=== PATIENT | female | born 2000 | race Caucasian/White ===

== ENCOUNTER 2022-01-20 11:59 | Emergency (ER) | payer BC, OTHER, MEDICAID, SELFPAY ==
[2022-01-20 12:10] VITALS: BP 121/76; PULSE 71; RESP 14; TEMP 36.7; O2SAT 99
--- NOTE | 2022-01-20 12:14 | DI.US.S_ITS ---
PROCEDURE: US PELVIC COMPLETE INDICATIONS: BLEEDING; 6 WEEKS TECHNIQUE: Real-time scanning was performed of the pelvic organs, with image documentation. Additional endovaginal scanning was necessary due to incomplete visualization of the adnexal and endometrial structures by transabdominal scanning. COMPARISON: None. FINDINGS: Uterus: Uterus is anteverted and normal in size at 8.4 x 4.0 x 5.3 cm. The myometrium is homogeneous. The endometrium measures 19.3 mm combined thickness and has heterogeneous echotexture. No intrauterine identified. Ovaries: The right ovary measures 2.7 x 2.1 x 2.2 cm. The left ovary measures 3.8 x 1.7 x 1.5 cm. The ovaries have a normal sonographic appearance. Ovaries are sonographically normal. No adnexal masses are seen. Other: No pathologic free abdominal or pelvic fluid. IMPRESSION: Thickened, heterogeneous endometrium with no definite intrauterine identified. Differential diagnosis includes early occult intrauterine , retained products of conception and occult ectopic . Recommend close clinical observation, correlation with serial beta HCG and short-term follow-up ultrasound in 1 week or earlier if clinically indicated. Dictated by: Denise Armstrong MD, PhD on 01/20/2022 at 13:29 Approved by: Denise Armstrong MD, PhD on 01/20/2022 at 13:34
[2022-01-20 12:53] LABS: Appearance Urine UA CLOUDY; Bilirubin Urine UA NEGATIVE (NEGATIVE); Color Urine UA RED; Glucose Urine UA NEGATIVE (Negative); Ketones Urine UA NEGATIVE (NEGATIVE); Leukocyte Esterase Urine UA TRACE (NEGATIVE); Nitrite Urine UA NEGATIVE (Negative); Occult Blood Urine UA 3+ (Negative); Protein Urine UA 2+ (Negative); Specific Gravity Urine UA 1.015 (1.000-1.035); Urobilinogen Urine UA 0.2 E.U./dL (0.2)
[2022-01-20 12:54] LABS: pH Urine UA 8.5 (4.5-8.0)
[2022-01-20 13:01] LABS: Bacteria Urine Few (2-10); Culture Indicated Urine Specimen Cultured; RBC Urine 30-100/HPF (0-5/HPF); WBC Urine 5-10/HPF (0-5/HPF)
[2022-01-20 13:04] LABS: Add Manual Diff / Slide Review NO; Basophils Absolute Auto 0 /uL (0-100); Basophils Percent Auto 0.4 % (0-2); Eosinophils Absolute Auto 100 /uL (0-450); Eosinophils Percent Auto 1.5 % (2-4); Hemoglobin 13.5 g/dL (12.0-16.0); INR 1.1 (0.9-1.3); Lymphocytes Absolute Auto 2000 /uL (1100-4500); Lymphocytes Percent Auto 23.5 % (25-40); Mean Corpuscular HGB Conc 33.6 % (30-36); Mean Corpuscular Hemoglobin 29.4 PG (26-34); Mean Corpuscular Volume 87.3 fL (80-100); Monocytes Absolute Auto 600 /uL (0-900); Monocytes Percent Auto 6.9 % (3-14); Neutrophils Absolute Auto 5800 /uL (1500-7000); Neutrophils Percent Auto 67.7 % (50-75); Platelet Count 295 X10^3/uL (150-400); Prothrombin Time 12.2 SECONDS (10.1-12.7); Red Blood Cell Count 4.58 X10^6/uL (4.0-5.2); Red Cell Distribution Width 12.5 % (11.6-14.8); White Blood Cell Count 8.6 X10^3/uL (4.5-11.0)
[2022-01-20 13:07] LABS: PTT Partial Thromboplastin Tim 32 SECONDS (26.4-36.2)
--- NOTE | 2022-01-20 13:30 | ED.PREGNANCY ---
HPI - <Allison Hernandez PA-C - Last Filed: 01/20/22 14:26> General Chief complaint: Vaginal Bleeding Stated complaint: 6 Wks Preg, Thinks Miscarrige Time Seen by Provider: 01/20/22 12:21 Source: patient Mode of arrival: Ambulatory Limitations: no limitations History of Present Illness HPI Narrative: 21-year-old female with no reported past medical history presents to the ED with 3 days vaginal bleeding, clots, pelvic cramping. Patient endorses that she was seen at [facility] last week, had an ultrasound which showed an IUP of 6 weeks gestation. Patient states she started having vaginal bleeding the day after that exam along with clots, pelvic cramping. Patient denies fever, chills, chest pain, shortness of breath, dysuria, flank pain, lightheadedness, dizziness, syncope. Patient endorses this as her 1st . Related Data Previous Rx's Medication Instructions Recorded nitrofurantoin 100 mg PO BID 5 Days #10 cap 01/20/22 monohydrate/macrocrystals 100 mg capsule (Macrobid) nitrofurantoin 100 mg PO BID 5 Days #10 cap 01/20/22 monohydrate/macrocrystals 100 mg capsule (Macrobid) Allergies Allergy/AdvReac Type Severity Reaction Status Date / Time acetaminophen Allergy Severe Anaphylaxis Verified 01/20/22 12:19 Review of Systems <Allison Hernandez PA-C - Last Filed: 01/20/22 14:26> Review of Systems ROS Unobtainable: All systems reviewed & are unremarkable except as noted in HPI and below Constitutional Constitutional: Denies chills, Denies fatigue, Denies fever(s), Denies frequent falls, Denies lethargy and Denies weakness Eyes Eyes: Denies change in vision, Denies eye discharge, Denies irritation and Denies loss of vision ENT Ears, Nose, Mouth, and Throat: Denies change in voice, Denies dizziness, Denies neck pain, Denies sore throat and Denies throat swelling Cardiovascular Cardiovascular: Denies chest pain, Denies irregular heart rhythm, Denies lightheadedness, Denies palpitations, Denies dyspnea, Denies dyspnea on exertion and Denies orthopnea Respiratory Respiratory: Denies cough, Denies dyspnea, Denies dyspnea on exertion and Denies wheezing Gastrointestinal Gastrointestinal: Denies abdominal pain, Denies change in bowel habits, Denies diarrhea, Denies nausea and Denies vomiting Genitourinary Genitourinary: Reports abnormal vaginal bleeding, Denies hematuria, Reports pelvic pain, Denies flank pain, Denies urinary incontinence and Denies urinary urgency Comments: Vaginal bleeding, clots, pelvic cramping Musculoskeletal Musculoskeletal: Denies back pain, Denies muscle weakness, Denies neck pain, Denies numbness and Denies tingling Integumentary/Breasts Skin/Breast: Denies pruritus, Denies erythema, Denies rash and Denies wounds Neurologic Neurologic: Denies behavioral changes, Denies confusion, Denies dizziness, Denies frequent falls, Denies loss of vision, Denies numbness, Denies tingling and Denies weakness Psychiatric Psychiatric: Denies anxiety, Denies behavioral changes, Denies confusion, Denies depression, Denies homicidal ideation and Denies suicidal ideation Endocrine Endocrine: Denies fatigue, Denies flushing and Denies palpitations Hematologic/Lymphatic Hematologic/Lymphatic: Denies easy bruising Allergic/Immunologic Allergic/Immunologic: Denies urticaria, Denies throat swelling and Denies wheezing PMFSH - <Allison Hernandez PA-C - Last Filed: 01/20/22 14:26> Past Medical History Medical history: Reports no medical history Exam <Allison Hernandez PA-C - Last Filed: 01/20/22 14:26> Initial Vital Signs Initial Vital Signs: Vital Signs Temperature 98.1 F 01/20/22 12:10 Pulse Rate 71 01/20/22 12:10 Respiratory Rate 14 01/20/22 12:10 Blood Pressure 121/76 01/20/22 12:10 Pulse Oximetry 99 01/20/22 12:10 Const General: cooperative, healthy appearing and comfortable [facility] Head: normal to inspection Eyes General: appearance normal, both eyes and all related structures Neck Neck: normal visual inspection Chest Chest: normal inspection of the chest Resp Effort & Inspection: normal respiratory effort Auscultation: clear to auscultation bilaterally Cardio Rate: regular rate Rhythm: regular rhythm GI Inspection: normal to inspection Other: Abdomen is soft, nondistended, nontender to palpation. General: No CVA tenderness Skin General: no rashes or lesions noted Neuro General: patient alert, patient awake and patient oriented x3 Psych Appearance: grossly normal Mental Status: mental status grossly normal <Peyman Reynolds DO - Last Filed: 01/20/22 14:40> Initial Vital Signs Initial Vital Signs: Vital Signs Temperature 98.1 F 01/20/22 12:10 Pulse Rate 71 01/20/22 12:10 Respiratory Rate 14 01/20/22 12:10 Blood Pressure 121/76 01/20/22 12:10 Pulse Oximetry 99 01/20/22 12:10 Course <Allison Hernandez PA-C - Last Filed: 01/20/22 14:26> Orders Ordered: ED Orders 01/20/22 12:14 US pelvic complete Stat 01/20/22 12:28 ABO RH Type Stat Complete Blood Count AUTO DIFF Stat Comprehensive Metabolic Panel Stat HCG Quantitative /Beta subunit Stat PT [Prothrombin Time INR] Stat PTT [Partial Thromboplastin Time] Stat 01/20/22 12:45 Urinalysis and Microscopic Stat Urine Culture Stat Discontinued Medications Morphine Sulfate (Morphine 4 Mg/Ml Inj) 4 mg IV NOW ONE Stop: 01/20/22 13:31 Last Admin: 01/20/22 13:55 Dose: Not Given Documented by: TIFFANI Morphine Sulfate (Morphine 4 Mg/Ml Inj) 4 mg IM NOW ONE Stop: 01/20/22 13:55 Last Admin: 01/20/22 13:50 Dose: 4 mg Documented by: TIFFANI Vital Signs Vital signs: Vital Signs - 8 hr 01/20/22 12:10 01/20/22 14:04 Temperature 98.1 F Pulse Rate 71 78 Respiratory Rate 14 18 Blood Pressure 121/76 128/72 Pulse Oximetry 99 98 <DO Junie Joe Last Filed: 01/20/22 14:40> Orders Ordered: ED Orders 01/20/22 12:14 US pelvic complete Stat 01/20/22 12:28 ABO RH Type Stat Complete Blood Count AUTO DIFF Stat Comprehensive Metabolic Panel Stat HCG Quantitative /Beta subunit Stat PT [Prothrombin Time INR] Stat PTT [Partial Thromboplastin Time] Stat 01/20/22 12:45 Urinalysis and Microscopic Stat Urine Culture Stat Discontinued Medications Morphine Sulfate (Morphine 4 Mg/Ml Inj) 4 mg IV NOW ONE Stop: 01/20/22 13:31 Last Admin: 01/20/22 13:55 Dose: Not Given Documented by: TIFFANI Morphine Sulfate (Morphine 4 Mg/Ml Inj) 4 mg IM NOW ONE Stop: 01/20/22 13:55 Last Admin: 01/20/22 13:50 Dose: 4 mg Documented by: TIFFANI Vital Signs Vital signs: Vital Signs - 8 hr 01/20/22 12:10 01/20/22 14:04 Temperature 98.1 F Pulse Rate 71 78 Respiratory Rate 14 18 Blood Pressure 121/76 128/72 Pulse Oximetry 99 98 MDM - OB/Uterine Contractions <Allison Hernandez PA-C - Last Filed: 01/20/22 14:26> Medical Records Attestation: I reviewed the patient's medical records. Lab Data Attestation: I reviewed the patient's lab results. Lab results narrative: HCG 06/28/1994. UA positive for UTI. H&H within normal limits. Result diagrams: 01/20/22 12:28 01/20/22 12:28 Labs: Lab Results 01/20/22 01/20/22 01/20/22 Range/Units 12:28 12:28 12:28 WBC 8.6 (4.5-11.0) X10^3/uL RBC 4.58 (4.0-5.2) X10^6/uL Hgb 13.5 (12.0-16.0) g/dL Hct 40.0 (36-46) % MCV 87.3 (80-100) fL MCH 29.4 (26-34) PG MCHC 33.6 (30-36) % RDW 12.5 (11.6-14.8) % Plt Count 295 (150-400) X10^3/uL Neut % (Auto) 67.7 (50-75) % Lymph % (Auto) 23.5 L (25-40) % [place] % (Auto) 6.9 (3-14) % Eos % (Auto) 1.5 L (2-4) % Baso % (Auto) 0.4 (0-2) % Neut # (Auto) 5800 (9773-0952) /uL Lymph # (Auto) 2000 (9769-6410) /uL [place] # (Auto) 600 (0-900) /uL Eos # (Auto) 100 (0-450) /uL Baso # (Auto) 0 (0-100) /uL PT (10.1-12.7) SECONDS INR (0.9-1.3) APTT (26.4-36.2) SECONDS Sodium 137 (137-145) mmol/L Potassium 4.0 (3.4-5.1) mmol/L Chloride 104 (98-107) mmol/L Carbon Dioxide 27 (22-32) mmol/L BUN 6 L (7-17) mg/dL Creatinine 0.49 L (0.52-1.04) mg/dL Estimated GFR > 60.0 (>60) mL/min BUN/Creatinine Ratio 12.2 (6-22) Glucose 86 (70-100) mg/dL Calcium 9.6 (8.4-10.2) mg/dL Total Bilirubin 0.5 (0.2-1.3) mg/dL AST 28 (14-36) IU/L ALT 32 (<35) IU/L Alkaline Phosphatase 62 (38-126) U/L Total Protein 7.4 (6.3-8.2) g/dL Albumin 4.6 (3.5-5.0) g/dL Globulin 2.8 (1.7-4.1) g/dL Albumin/Globulin Ratio 1.6 (1.0-2.8) HCG, Quant 3794.9 mIU/mL Urine Color Urine Appearance Urine pH (4.5-8.0) Ur Specific [place] (1.000-1.035) Urine Protein (Negative) Urine Glucose (UA) (Negative) g/dL Urine Ketones (NEGATIVE) Urine Occult Blood (Negative) Urine Nitrate (Negative) Urine Bilirubin (NEGATIVE) Urine Urobilinogen (0.2) E.U./dL Ur Leukocyte Esterase (NEGATIVE) Urine RBC (0-5/HPF) Urine WBC (0-5/HPF) Urine Bacteria (None) Ur Culture Indicated? Blood Type B Positive 01/20/22 01/20/22 Range/Units 12:28 12:45 WBC (4.5-11.0) X10^3/uL RBC (4.0-5.2) X10^6/uL Hgb (12.0-16.0) g/dL Hct (36-46) % MCV (80-100) fL MCH (26-34) PG MCHC (30-36) % RDW (11.6-14.8) % Plt Count (150-400) X10^3/uL Neut % (Auto) (50-75) % Lymph % (Auto) (25-40) % [place] % (Auto) (3-14) % Eos % (Auto) (2-4) % Baso % (Auto) (0-2) % Neut # (Auto) (5250-6112) /uL Lymph # (Auto) (9333-8081) /uL [place] # (Auto) (0-900) /uL Eos # (Auto) (0-450) /uL Baso # (Auto) (0-100) /uL PT 12.2 (10.1-12.7) SECONDS INR 1.1 (0.9-1.3) APTT 32 (26.4-36.2) SECONDS Sodium (137-145) mmol/L Potassium (3.4-5.1) mmol/L Chloride (98-107) mmol/L Carbon Dioxide (22-32) mmol/L BUN (7-17) mg/dL Creatinine (0.52-1.04) mg/dL Estimated GFR (>60) mL/min BUN/Creatinine Ratio (6-22) Glucose (70-100) mg/dL Calcium (8.4-10.2) mg/dL Total Bilirubin (0.2-1.3) mg/dL AST (14-36) IU/L ALT (<35) IU/L Alkaline Phosphatase (38-126) U/L Total Protein (6.3-8.2) g/dL Albumin (3.5-5.0) g/dL Globulin (1.7-4.1) g/dL Albumin/Globulin Ratio (1.0-2.8) HCG, Quant mIU/mL Urine Color Red Urine Appearance Cloudy Urine pH 8.5 H (4.5-8.0) Ur Specific [place] 1.015 (1.000-1.035) Urine Protein 2+ H (Negative) Urine Glucose (UA) Negative (Negative) g/dL Urine Ketones Negative (NEGATIVE) Urine Occult Blood 3+ H (Negative) Urine Nitrate Negative (Negative) Urine Bilirubin Negative (NEGATIVE) Urine Urobilinogen 0.2 (0.2) E.U./dL Ur Leukocyte Esterase Trace H (NEGATIVE) Urine RBC 30-100/hpf H (0-5/HPF) Urine WBC 5-10/hpf H (0-5/HPF) Urine Bacteria Few (2-10) H (None) Ur Culture Indicated? Specimen cultured Blood Type Imaging Data US - OB: Radiologist's Impression: PROCEDURE:? US PELVIC COMPLETE ? INDICATIONS:? BLEEDING; 6 WEEKS ? TECHNIQUE:? Real-time scanning was performed of the pelvic organs, with image documentation.? Additional endovaginal scanning was necessary due to incomplete visualization of the adnexal and endometrial structures by transabdominal scanning.? ? COMPARISON:? None. ? FINDINGS:? ?? Uterus:? Uterus is anteverted and normal in size at 8.4 x 4.0 x 5.3 cm. The myometrium is homogeneous. ? The endometrium measures 19.3 mm combined thickness and has heterogeneous echotexture.? No intrauterine identified. ? Ovaries:? The right ovary measures 2.7 x 2.1 x 2.2 cm. The left ovary measures 3.8 x 1.7 x 1.5 cm. The ovaries have a normal sonographic appearance.? Ovaries are sonographically normal.? No adnexal masses are seen. ? Other:? No pathologic free abdominal or pelvic fluid. ? ? IMPRESSION:? Thickened, heterogeneous endometrium with no definite intrauterine identified.? Differential diagnosis includes early occult intrauterine , retained products of conception and occult ectopic .? Recommend close clinical observation, correlation with serial beta HCG and short-term follow-up ultrasound in 1 week or earlier if clinically indicated. ? ? ? Dictated by: Denise Armstrong MD, PhD on 01/20/2022 at 13:29 ? ? Approved by: Denise Armstrong MD, PhD on 01/20/2022 at 13:34 ? MDM Narrative Medical decision making narrative: 21-year-old female with no reported past medical history presents to the ED with 3 days vaginal bleeding, clots, pelvic cramping. Concern for miscarriage versus ectopic versus IUP. Will order labs, quantitative HCG, pelvic ultrasound. Will reassess. Will treat pain with morphine. Ultrasound with no evidence of IUP, ectopic. Babatunde ECG 06/28/1994. UA positive for UTI. In symptoms likely due to a miscarriage. Will discharge home with prescription for the UTI, follow-up with Dr. Laguna for 9:45 a.m. tomorrow. ED return precautions discussed with patient. Patient verbalized understanding. Called patient to inform of the UTI, called in prescription for Macrobid to [facility] in a [place]. Patient verbalized understanding. <Peyman Reynolds, DO - Last Filed: 01/20/22 14:40> Lab Data Labs: Lab Results 01/20/22 01/20/22 01/20/22 Range/Units 12:28 12:28 12:28 WBC 8.6 (4.5-11.0) X10^3/uL RBC 4.58 (4.0-5.2) X10^6/uL Hgb 13.5 (12.0-16.0) g/dL Hct 40.0 (36-46) % MCV 87.3 (80-100) fL MCH 29.4 (26-34) PG MCHC 33.6 (30-36) % RDW 12.5 (11.6-14.8) % Plt Count 295 (150-400) X10^3/uL Neut % (Auto) 67.7 (50-75) % Lymph % (Auto) 23.5 L (25-40) % [place] % (Auto) 6.9 (3-14) % Eos % (Auto) 1.5 L (2-4) % Baso % (Auto) 0.4 (0-2) % Neut # (Auto) 5800 (9277-6614) /uL Lymph # (Auto) 2000 (7885-5153) /uL [place] # (Auto) 600 (0-900) /uL Eos # (Auto) 100 (0-450) /uL Baso # (Auto) 0 (0-100) /uL PT (10.1-12.7) SECONDS INR (0.9-1.3) APTT (26.4-36.2) SECONDS Sodium 137 (137-145) mmol/L Potassium 4.0 (3.4-5.1) mmol/L Chloride 104 (98-107) mmol/L Carbon Dioxide 27 (22-32) mmol/L BUN 6 L (7-17) mg/dL Creatinine 0.49 L (0.52-1.04) mg/dL Estimated GFR > 60.0 (>60) mL/min BUN/Creatinine Ratio 12.2 (6-22) Glucose 86 (70-100) mg/dL Calcium 9.6 (8.4-10.2) mg/dL Total Bilirubin 0.5 (0.2-1.3) mg/dL AST 28 (14-36) IU/L ALT 32 (<35) IU/L Alkaline Phosphatase 62 (38-126) U/L Total Protein 7.4 (6.3-8.2) g/dL Albumin 4.6 (3.5-5.0) g/dL Globulin 2.8 (1.7-4.1) g/dL Albumin/Globulin Ratio 1.6 (1.0-2.8) HCG, Quant 3794.9 mIU/mL Urine Color Urine Appearance Urine pH (4.5-8.0) Ur Specific [place] (1.000-1.035) Urine Protein (Negative) Urine Glucose (UA) (Negative) g/dL Urine Ketones (NEGATIVE) Urine Occult Blood (Negative) Urine Nitrate (Negative) Urine Bilirubin (NEGATIVE) Urine Urobilinogen (0.2) E.U./dL Ur Leukocyte Esterase (NEGATIVE) Urine RBC (0-5/HPF) Urine WBC (0-5/HPF) Urine Bacteria (None) Ur Culture Indicated? Blood Type B Positive 01/20/22 01/20/22 Range/Units 12:28 12:45 WBC (4.5-11.0) X10^3/uL RBC (4.0-5.2) X10^6/uL Hgb (12.0-16.0) g/dL Hct (36-46) % MCV (80-100) fL MCH (26-34) PG MCHC (30-36) % RDW (11.6-14.8) % Plt Count (150-400) X10^3/uL Neut % (Auto) (50-75) % Lymph % (Auto) (25-40) % [place] % (Auto) (3-14) % Eos % (Auto) (2-4) % Baso % (Auto) (0-2) % Neut # (Auto) (0828-9783) /uL Lymph # (Auto) (7247-7775) /uL [place] # (Auto) (0-900) /uL Eos # (Auto) (0-450) /uL Baso # (Auto) (0-100) /uL PT 12.2 (10.1-12.7) SECONDS INR 1.1 (0.9-1.3) APTT 32 (26.4-36.2) SECONDS Sodium (137-145) mmol/L Potassium (3.4-5.1) mmol/L Chloride (98-107) mmol/L Carbon Dioxide (22-32) mmol/L BUN (7-17) mg/dL Creatinine (0.52-1.04) mg/dL Estimated GFR (>60) mL/min BUN/Creatinine Ratio (6-22) Glucose (70-100) mg/dL Calcium (8.4-10.2) mg/dL Total Bilirubin (0.2-1.3) mg/dL AST (14-36) IU/L ALT (<35) IU/L Alkaline Phosphatase (38-126) U/L Total Protein (6.3-8.2) g/dL Albumin (3.5-5.0) g/dL Globulin (1.7-4.1) g/dL Albumin/Globulin Ratio (1.0-2.8) HCG, Quant mIU/mL Urine Color Red Urine Appearance Cloudy Urine pH 8.5 H (4.5-8.0) Ur Specific [place] 1.015 (1.000-1.035) Urine Protein 2+ H (Negative) Urine Glucose (UA) Negative (Negative) g/dL Urine Ketones Negative (NEGATIVE) Urine Occult Blood 3+ H (Negative) Urine Nitrate Negative (Negative) Urine Bilirubin Negative (NEGATIVE) Urine Urobilinogen 0.2 (0.2) E.U./dL Ur Leukocyte Esterase Trace H (NEGATIVE) Urine RBC 30-100/hpf H (0-5/HPF) Urine WBC 5-10/hpf H (0-5/HPF) Urine Bacteria Few (2-10) H (None) Ur Culture Indicated? Specimen cultured Blood Type Discharge Plan Departure Patient Disposition: Home Clinical Impression: Vaginal bleeding Instructions: DI for Miscarriage Activity Restrictions/Additional Instructions: You were evaluated in the ED today for vaginal bleeding during . Your blood work does not show any signs of anemia. Your ultrasound today did not show an intrauterine . Your vaginal bleeding and pelvic cramping is likely due to a miscarriage. Please follow-up with your OBGYN as soon as possible. Please return to the ED if you experience increased vaginal bleeding, shortness of breath, lightheadedness, dizziness. You have an appointment with Dr. Laguna at 10:00 a.m. tomorrow for follow-up. Prescriptions: New nitrofurantoin monohyd/m-cryst [Macrobid] 100 mg capsule 100 mg PO BID 5 Days Qty: 10 0RF Rx Instructions: must administer with a meal/food nitrofurantoin monohyd/m-cryst [Macrobid] 100 mg capsule 100 mg PO BID 5 Days Qty: 10 0RF Rx Instructions: must administer with a meal/food <Peyman Reynolds, DO - Last Filed: 01/20/22 14:40> [facility]: Dr Reynolds Co-Sign Statement: I was available for consultation during this patient's emergency department visit. This chart is signed by myself for administrative purposes only. I did not have direct contact with this patient during this visit. They were seen independently by the APC.
[2022-01-20 13:39] LABS: Alanine Aminotransferase 32 IU/L (<35); Albumin 4.6 g/dL (3.5-5.0); Albumin Globulin Ratio 1.6 (1.0-2.8); Alkaline Phosphatase 62 U/L (38-126); Aspartate Aminotransferase 28 IU/L (14-36); BUN Creatinine Ratio 12.2 (6-22); Bilirubin Total 0.5 mg/dL (0.2-1.3); Blood Urea Nitrogen 6 mg/dL (7-17); Calcium 9.6 mg/dL (8.4-10.2); Carbon Dioxide 27 mmol/L (22-32); Chloride 104 mmol/L (98-107); Estimated Glomerular Filt Rate > 60.0 mL/min (>60); Globulin 2.8 g/dL (1.7-4.1); Glucose 86 mg/dL (70-100); HEMOLYSIS < 15 (0-50); Sodium 137 mmol/L (137-145); Total Protein 7.4 g/dL (6.3-8.2)
[2022-01-20] MEDS: MORPHINE 4 MG/ML INJ IM (13:50)
[2022-01-20 13:51] LABS: HCG Quantitative /Beta subunit 3794.9 mIU/mL
[2022-01-20 14:04] VITALS: BP 128/72; PULSE 78; RESP 18; O2SAT 98
== END 2022-01-20 14:05 | disposition home or self-care (01) ==
PROVIDERS: Emergency Medicine; Emergency Provider Student in an Organized Health Care Education/Training Program
DX: O20.9 Hemorrhage in early pregnancy, unspecified (principal); O23.41 Unspecified infection of urinary tract in pregnancy, first trimester; N39.0 Urinary tract infection, site not specified; Z3A.01 Less than 8 weeks gestation of pregnancy
CPT/HCPCS: 36415; 76830; 76856; 80053; 81001; 84702; 85025; 85610; 85730; 86900; 86901; 87086; 96372; 99283; J2270

== ENCOUNTER → 2022-01-21 10:39 | Outpatient (CLI) | payer BC, OTHER, MEDICAID, SELFPAY ==
[2022-01-21 11:20] LABS: Add Manual Diff / Slide Review NO; Basophils Absolute Auto 0 /uL (0-100); Basophils Percent Auto 0.2 % (0-2); Eosinophils Absolute Auto 100 /uL (0-450); Eosinophils Percent Auto 0.7 % (2-4); Hematocrit 38.9 % (36-46); Hemoglobin 12.9 g/dL (12.0-16.0); Lymphocytes Absolute Auto 1500 /uL (1100-4500); Lymphocytes Percent Auto 13.8 % (25-40); Mean Corpuscular HGB Conc 33.1 % (30-36); Mean Corpuscular Hemoglobin 29.1 PG (26-34); Mean Corpuscular Volume 87.9 fL (80-100); Monocytes Absolute Auto 700 /uL (0-900); Monocytes Percent Auto 6.1 % (3-14); Neutrophils Absolute Auto 8400 /uL (1500-7000); Neutrophils Percent Auto 79.2 % (50-75); Platelet Count 279 X10^3/uL (150-400); Red Blood Cell Count 4.43 X10^6/uL (4.0-5.2); Red Cell Distribution Width 12.7 % (11.6-14.8); White Blood Cell Count 10.7 X10^3/uL (4.5-11.0)
[2022-01-21 11:58] LABS: HCG Quantitative /Beta subunit 1063.8 mIU/mL
== END ==
PROVIDERS: Referring Provider Obstetrics & Gynecology; Visit Provider Obstetrics & Gynecology
DX: O03.9 Complete or unspecified spontaneous abortion without complication (principal); N91.2 Amenorrhea, unspecified
CPT/HCPCS: 36415; 84702; 85025

== ENCOUNTER → 2022-01-24 10:07 | Outpatient (CLI) | payer BC, OTHER, MEDICAID, SELFPAY ==
[2022-01-24 12:07] LABS: Alanine Aminotransferase 30 IU/L (<35); Albumin 4.5 g/dL (3.5-5.0); Albumin Globulin Ratio 1.5 (1.0-2.8); Alkaline Phosphatase 52 U/L (38-126); Aspartate Aminotransferase 38 IU/L (14-36); BUN Creatinine Ratio 14.8 (6-22); Bilirubin Total 0.4 mg/dL (0.2-1.3); Blood Urea Nitrogen 9 mg/dL (7-17); Calcium 9.2 mg/dL (8.4-10.2); Carbon Dioxide 30 mmol/L (22-32); Chloride 105 mmol/L (98-107); Cholesterol 172 mg/dL (140-199); Estimated Glomerular Filt Rate > 60.0 mL/min (>60); Glucose 86 mg/dL (70-100); HDL Cholesterol 57 mg/dL (40-60); HEMOLYSIS < 15 (0-50); LDL Cholesterol Calculated 106 mg/dL (<100); Potassium 3.7 mmol/L (3.4-5.1); Sodium 138 mmol/L (137-145); Total Protein 7.5 g/dL (6.3-8.2); Triglycerides 47 mg/dL (35-150)
[2022-01-24 12:24] LABS: Free T4, Direct Thyroxine 1.01 ng/dL (0.78-2.19)
[2022-01-24 12:38] LABS: Thyroid Stimulating Hormone 2.76 uIU/mL (0.47-4.68)
[2022-01-27 13:37] LABS: Lamotrigine Lamictal 8.6 ug/mL (2.0-20.0)
== END ==
PROVIDERS: PCP Registered Nurse General Practice; Referring Provider Obstetrics & Gynecology; Visit Provider Obstetrics & Gynecology
DX: F31.30 Bipolar disorder, current episode depressed, mild or moderate severity, unspecified (principal); N91.2 Amenorrhea, unspecified; O03.9 Complete or unspecified spontaneous abortion without complication
CPT/HCPCS: 36415; 80053; 80061; 80175; 84439; 84443; 84702